=== PATIENT | female | born 1985 | race American Indian/Alaskan Native ===

== ENCOUNTER 2020-02-02 17:26 | Outpatient (CLI) | payer MEDICAID ==
[2020-02-02 18:21] VITALS: BP 112/54
--- NOTE | 2020-02-02 23:16 | Ultrasound Report ---
ULTRASOUND OBSTETRIC LIMITED ULTRASOUND BIOPHYSICAL PROFILE INDICATION / CLINICAL INFORMATION: FWB. COMPARISON: None available. FINDINGS: BREATHING MOVEMENT = 2 GROSS BODY MOVEMENT = 2 TONE = 2 QUALITATIVE AMNIOTIC FLUID VOLUME = 2 TOTAL BIOPHYSICAL SCORE = 8/8 HEART RATE (beats per minute): 149 AMNIOTIC FLUID INDEX (cm) = 15.3 (normal = 7-24 cm) PRESENTATION: Cephalic. ADDITIONAL FINDINGS: None. IMPRESSION: 1. Biophysical Score = 8/8 Signer Name: Micha Carrasquillo MD Signed: 02/02/2020 11:15 PM Workstation Name: [email or web address]
== END 2020-02-02 20:20 | disposition home or self-care (01) ==
LOC: TRG 17:26 → APU 17:28 → TRG 20:20
PROVIDERS: ATTEND Obstetrics & Gynecology
DX: O36.8130 Decreased fetal movements, third trimester, not applicable or unspecified (principal); Z3A.34 34 weeks gestation of pregnancy
CPT/HCPCS: 59025; 76815; 76819